=== PATIENT | female | born 1995 | race Caucasian/White ===

== ENCOUNTER 2020-12-24 10:30 | Emergency (ER) | payer BC ==
[~2020-12-24] VITALS: Ht 170.2 cm; Wt 104.3 kg
[~2020-12-24 10:30] MED LIST: BACTROBAN22 GM TP; FLEXERIL PO; IBUPROFEN 600600 M1 PO; MIDOL220 MG PO; TRAMADOL 50 MG50 MG PO
[2020-12-24 11:04] LABS: ABSOLUTE NEUTROPHILS 5.3 thou/uL (1.4-8.2); BASOPHILS 0.5 % (0.0-2.0); EOSINOPHILS 1.3 % (0.0-3.0); HEMATOCRIT 39.1 % (37.0-47.0); HEMOGLOBIN 13.1 gm/dL (12.0-15.0); LYMPHOCYTES 22.7 % (24.0-44.0); MCH 27.6 pg (26.0-34.0); MCHC 33.5 g/dL (28.0-37.0); MCV 82.4 fL (80.0-100.0); PLATELET COUNT 288 thou/uL (150-400); POLYS 69.5 % (36.0-66.0); RBC 4.75 mil/uL (4.20-5.00); RDW 13.6 % (10.5-14.5); WBC 7.7 thou/uL (4.0-11.0)
[2020-12-24 11:22] LABS: ANION GAP 6 mmol/L (7-16); BUN 11 mg/dL (7-18); CALCIUM 8.7 mg/dL (8.5-10.1); CHLORIDE 103 mmol/L (98-107); CO2 29 mmol/L (21-32); CREATININE 0.7 mg/dL (0.6-1.0); GLUCOSE 103 mg/dL (74-106); POTASSIUM 3.8 mmol/L (3.5-5.1); SODIUM 138 mmol/L (136-145)
[2020-12-24 11:33] LABS: ALBUMIN 3.8 g/dL (3.4-5.0); SGOT 20 U/L (15-37); SGPT 28 U/L (30-65); TOTAL BILIRUBIN 0.5 mg/dL (0.2-1.0); TOTAL PROTEIN 7.6 g/dL (6.4-8.2); TROPONIN-I <0.06 ng/mL (<0.06)
[2020-12-24 12:43] VITALS: BP 119/70
--- NOTE | 2020-12-24 12:53 | EKG ---
[place] [address] [facility] [place] [address] ELECTROCARDIOGRAM REPORT Name: KWAKU MARTIN Room #: [facility]#: [id number] Admission: 12/24/20 Attend Phys: Discharge: Date of : [birth year] Report #: [id number] [facility] ED Test Date: 2020-12-24 Test Time: 10:34:09 Pat Name: KWAKU MARTIN Department: Room: Gender: F [employer] Estate Closing Coordinator: PORTER : 1995 Requested By: Giovanni Lucero Order Number: [id number] MD: Edson Lugo Measurements Intervals [place] Rate: 88 P: 31 [place]: 137 QRS: 3 QRSD: 102 T: 27 QT: 363 QTc: 440 Interpretive Statements Sinus rhythm RSR' in V1 or V2, right VCD or RVH No previous ECG available for comparison Electronically Signed On 12-24-2020 12:53:44 CDT by Edson Lugo [email or web address] <ELECTRONICALLY SIGNED> By: Edson Lugo MD, [facility] 12/24/20 1253 1034 1034 Edson Lugo MD, FACC /EPI
== END 2020-12-24 12:57 | disposition home or self-care (01) ==
LOC: ER 10:30
PROVIDERS: Emergency Medicine Emergency Medical Services
DX: R07.89 Other chest pain (principal); R06.02 Shortness of breath; R42 Dizziness and giddiness; R11.0 Nausea; Z93.3 Colostomy status; Z98.890 Other specified postprocedural states; Z77.22 Contact with and (suspected) exposure to environmental tobacco smoke (acute) (chronic)